=== PATIENT | male | born 2000 | race Caucasian/White ===

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

== ENCOUNTER 2023-04-24 09:41 | Emergency (ER) | payer OTHER, BC ==
[~2023-04-24] VITALS: Ht 175.3 cm; Wt 70.3 kg
[2023-04-24 10:35] VITALS: BP 141/86
== END 2023-04-24 11:03 | disposition home or self-care (01) ==
LOC: ER 09:41
DX: S96.911A Strain of unspecified muscle and tendon at ankle and foot level, right foot, initial encounter (principal); S90.31XA Contusion of right foot, initial encounter; V89.2XXA Person injured in unspecified motor-vehicle accident, traffic, initial encounter; Z79.899 Other long term (current) drug therapy
CPT/HCPCS: 73620; 99284-25